=== PATIENT | female | born 1950 | race Caucasian/White ===

== ENCOUNTER → 2022-05-08 | Outpatient (CLI) | payer MEDICARE | LOC: COL.RAD 05-07 13:00 → COL.PUL 09:48 → COL.RAD 10:00 | DX: J44.9 Chronic obstructive pulmonary disease, unspecified (principal) ==

== ENCOUNTER 2022-12-04 09:37 | Emergency (ER) | payer MEDICARE ==
[~2022-12-04] VITALS: Ht 147.3 cm; Wt 54.5 kg
[~2022-12-04 09:37] MED LIST: 00186-0370-20 IH; ALBUTEROL0.83 MG/ML IH; ASPIRIN E.C. 8181 MG PO; BUSPIRONE HCL PO; BYSTOLIC10 MG PO; CALCIUM 600600 MG PO; CARDIZEM CD360 MG PO; FLONASEALLERGY NS; FOSAMAX 70MG TA70 MG PO; GLUCOSAMINE & C1 CA1 PO; LEVAQUIN 5500 MG/TA1 PO; MICARDIS20 MG PO; MICARDIS80 MG PO; ONE DAILY ESSE0.5 MG PO; PREDNISONE10 MG PO; PROAIR HFA0.09 MG/AC IH; SPIRIVA RE2.5 MCG/Ac IH; WELLBUTRIN SR200 MG PO
[2022-12-04 09:57] VITALS: TEMP 99
[2022-12-04 10:32] LABS: ARTERIAL BLD GAS O2 SATURATION 89.9 % (92-100); ARTERIAL BLD GAS TCO2 CT 27.8; ARTERIAL BLOOD GAS BASE EXCESS 2.2 (-2-2); ARTERIAL BLOOD GAS HCO3 26.6 meq/L (22-26); ARTERIAL BLOOD GAS PCO2 40.4 mmHg (35-45); ARTERIAL BLOOD GAS PO2 55.9 mmHg (80-100); ARTERIAL BLOOD GAS pH 7.44 (7.35-7.45)
[2022-12-04 10:45] LABS: BASO % 0.2 % (0.0-2.0); GRAN # 3.8 K/mm3 (1.4-6.5); GRAN % 71.2 % (42.2-75.2); HEMATOCRIT 38.2 % (37.0-47.0); HEMOGLOBIN 12.9 g/dl (12.5-16.0); LYMPH % 18.3 % (20.0-51.0); MEAN CELL VOLUME 97 fl (80.0-100.0); MEAN CORPUSCULAR HEMOGLOBIN 33 pg (27-31); MEAN CORPUSCULAR HGB CONC 34 g/dl (33.0-37.0); MEAN PLATELET VOLUME 8.5 fl (7.4-10.4); MONO # 0.5 K/mm3 (0.1-0.6); MONO % 10.1 % (1.7-9.3); PLATELET COUNT 219 K/mm3 (130-400); RED BLOOD COUNT 3.96 M/mm3 (4.10-5.30); REDCELL DISTRIBUTION WIDTH-CV 11.8 % (11.5-14.5)
[2022-12-04 10:53] LABS: ALANINE AMINOTRANSFERASE 18 U/L (0-55); ALKALINE PHOSPHATASE 54 U/L (40-150); ANION GAP 12 mmol/L (7-16); AST,SGOT 21 U/L (5-34); BILIRUBIN,TOTAL 0.4 mg/dL (0.2-1.2); BLOOD UREA NITROGEN 6 mg/dL (10-20); CALCIUM 8.8 mg/dL (8.4-10.2); CARBON DIOXIDE 24 mmol/L (23-31); CREATININE, serum 0.58 mg/dL (0.57-1.11); GLUCOSE 104 mg/dL (70-99); POTASSIUM 4.3 mmol/L (3.5-4.5); SODIUM 125 mmol/L (136-145); TOTAL PROTEIN 6.5 gm/dL (6.2-8.1)
[2022-12-04 10:54] LABS: CHLORIDE 89 mmol/L (98-107)
[2022-12-04 10:58] LABS: TROPONIN-I < 0.010 ng/mL (0.00-0.033)
[2022-12-04] MEDS ORDERED: AMOXICILLIN 8751 TAB PO (11:34)
[2022-12-04] MEDS ORDERED: PREDNISONE50 MG PO (11:34)
[2022-12-04 12:03] VITALS: BP 146/69; PULSE 79
== END 2022-12-04 12:09 | disposition home or self-care (01) ==
LOC: COL.ER 09:37
PROVIDERS: Physician Assistant
DX: J44.1 Chronic obstructive pulmonary disease with (acute) exacerbation (principal); J96.02 Acute respiratory failure with hypercapnia; F17.200 Nicotine dependence, unspecified, uncomplicated; Z20.822 Contact with and (suspected) exposure to COVID-19; Z28.310 Unvaccinated for COVID-19
CPT/HCPCS: J1100; J7030